=== PATIENT | male | born 1975 | race Caucasian/White ===

== ENCOUNTER 2023-01-19 10:23 | Emergency (ER) | payer OTHER ==
[2023-01-19] MEDS ORDERED: Tetracaine 0.5% PF 4 ML BOT ONE (10:37)
[2023-01-19] MEDS ORDERED: Fluorescein Opthalmic Strip ONE (10:39)
== END 2023-01-19 11:03 | disposition home or self-care (01) ==
LOC: BURERS 10:23
DX: T15.92XA Foreign body on external eye, part unspecified, left eye, initial encounter (principal)
CPT/HCPCS: 99283

== ENCOUNTER 2023-11-05 10:57 | Emergency (ER) | payer OTHER ==
[2023-11-05] MEDS ORDERED: Tetracaine 0.5% PF 4 ML BOT ONE (11:03)
== END 2023-11-05 11:37 | disposition home or self-care (01) ==
LOC: BURERS 10:57
DX: T15.01XA Foreign body in cornea, right eye, initial encounter (principal)
CPT/HCPCS: 99283